=== PATIENT | female | born 1985 | race Hispanic/Latino ===

== ENCOUNTER 2024-10-25 17:42 | Emergency (ER) | payer OTHER, SELFPAY ==
[2024-10-25 17:49] VITALS: BP 128/89
[2024-10-25 18:15] LABS: % Basophils 0.3 % (0-2); % Eosinophils 0.5 % (0-6); % Immature Granulocytes 0.4 % (0-0.5); % Lymphocytes 7.2 % (20.5-51.1); % Monocytes 4.2 % (1.7-9.3); % Neutrophils 87.4 % (42.2-75.2); Absolute Eosinophils 0.1 10^3/uL (0-0.7); Absolute Lymphocytes 0.8 10^3/uL (1.2-3.4); Absolute Monocytes 0.5 10^3/uL (0.1-0.6); Absolute Neutrophils 9.3 10^3/uL (1.4-6.5); Hematocrit 42.2 % (37.0-47.0); Hemoglobin 14.6 g/dL (12.0-16.0); Mean Corp Hgb Conc. 34.6 g/dL (33.0-37.0); Mean Corpuscular Hgb 30.9 pg (27.0-31.0); Mean Corpuscular Volume 89.4 fL (81.0-99.0); Mean Platelet Volume 9.3 fL (7.4-10.4); Nucleated Red Blood Cells % 0 %; Platelet Count 321 10^3/uL (130-400); Red Blood Cell Count 4.72 10^6/uL (4.20-5.40); Red Cell Dist. Width 12.4 % (11.5-14.5); White Blood Cell Count 10.7 10^3/uL (4.8-10.8)
[2024-10-25 18:24] LABS: ALT (SGPT) 27 U/L (0-35); AST (SGOT) 27 U/L (14-36); Albumin 4.4 g/dl (3.5-5.0); Alkaline Phosphatase 62 U/L (38-126); Blood Urea Nitrogen 13 mg/dl (7-17); Calcium 9.3 mg/dl (8.4-10.2); Carbon Dioxide 21 mmol/L (22-30); Chloride 103 mmol/L (98-107); Glucose 132 mg/dl (70-99); Lipase 35 U/L (23-300); Potassium 3.9 mmol/L (3.5-5.1); Sodium 137 mmol/L (135-145); Total Bilirubin 0.7 mg/dl (0.2-1.3); Total Protein 7.9 g/dl (6.3-8.2); eGFR > 60.00
--- NOTE | 2024-10-25 21:09 | ED.GENMED ---
History of Present Illness
General
Chief Complaint: Abdominal Symptoms
Source: patient and family
Exam Limitations: none
Time Seen by Provider: 10/25/24 20:52
Nursing documentation reviewed up to this point in time: agreed with
History of Present Illness
History of Present Illness:
Patient is a 39-year-old female who presents to the ER complaining of nausea and vomiting for the past 4 days. She vomited more than 10 times today and has had watery diarrhea. Her daughter was sick recently but symptoms are lasted 1 day. She
does complain of epigastric burning and does have a history of gastritis but reports this is worse with vomiting. She denies any other type of abdominal pain. She denies any urinary frequency urgency or dysuria. Patient denies any fever chills.
Patient's last menstrual pair was last month she is due for her period. She reports is not sexually active
Past History
Past History
ED Past Medical History: None
ED Past Surgical History: None
Review of Systems
Review of Systems
Allergies reviewed?: Yes
All Other Systems: ROS reviewed and negative except as documented in HPI and ROS
Constitutional: Reports no symptoms; Denies fever, fatigue or chills
Respiratory: Reports no symptoms
Cardiac: Reports no symptoms
ABD/GI: Reports abdominal pain (epigastric discomfort /burning ), nausea, vomiting and diarrhea
: Reports no symptoms
Musculoskeletal: Reports no symptoms
Skin: Reports no symptoms
Neurological: Reports no symptoms
Psychiatric: Reports no symptoms
Phy Exam
General Physical Exam
General Presentation: no apparent distress
General age: appears stated age
General Skin: warm and dry
General Habitus: normal
General Mental: alert
General Hydration: dry mucous membranes
Gastrointestinal Exam
Gastrointestinal Exam: soft and other (+ epigastric tenderness )
Neurological Exam
Neurological Exam: alert and oriented x3
Musculoskeletal Exam
Musculoskeletal Exam: full ROM
Skin Exam
Skin Exam: normal color and warm/dry
Psychiatric Exam
Psychiatric Exam: normal mood/affect
Course
Orders/Labs/Results
Orders:
Orders
10/25/24 18:03
Complete Blood Count/With Diff Urgent
Comprehensive Metabolic Panel Urgent
Lipase Urgent
10/25/24 21:18
Ondansetron Injectable [Zofran] 4 mg IV NOW STA
10/25/24 21:19
0.9% Sodium Chloride 1000 ml [Nss] 1,000 ml IV BOLUS
Dicyclomine HCl [Bentyl] 20 mg IM NOW STA
10/25/24 23:04
Stool Culture Urgent
CLAUDIA Source: Feces/Stool
Specimen Description:
Date Specimen was Collected: 10/25/24
Time Specimen was Collected: 23:03
10/25/24 23:11
Vital Signs- Treatment ONCE
Frequency: Once
10/25/24 23:18
Ondansetron Injectable [Zofran] 4 mg IV NOW STA
10/25/24 23:19
Add On- LAB Urgent
Tests Added?: hcg qualitative
Abnormal Lab Results
10/25/24
18:03
Absolute Neuts (auto) 9.3 H 10^3/uL
(1.4-6.5)
Absolute Lymphs (auto) 0.8 L 10^3/uL
(1.2-3.4)
Neutrophils % 87.4 H %
(42.2-75.2)
Lymphocytes % 7.2 L %
(20.5-51.1)
Carbon Dioxide 21 L mmol/L
(22-30)
Glucose 132 H mg/dl
(70-99)
10/25/24 18:03
10/25/24 18:03
Vital Signs
Initial and Last Documented VS:
Initial Vital Signs
Temp Pulse Resp BP Pulse Ox
98.1 F 120 19 128/89 99
10/25/24 17:49 10/25/24 17:49 10/25/24 17:49 10/25/24 17:49 10/25/24 17:49
Last Documented Vital Signs
Temp Pulse Resp BP Pulse Ox
98.1 F 97 16 113/72 97
10/25/24 17:49 10/25/24 23:20 10/25/24 23:20 10/25/24 23:20 10/25/24 23:20
MDM/Problems Addressed
MDM/Problems Addressed:
Symptoms are consistent with viral gastroenteritis. Patient denies any fevers and is afebrile no UTI symptoms. Abdomen soft minimal epigastric tenderness that she had from vomiting however improved. no right upper or left upper quadrant
tenderness no lower abdominal tenderness. Nontoxic. Stool specimen sent to lab. no recent antibx.
[facility] with [facility] with Zofran clear liquids for the next 24 hours follow bland solid foods to return if any worsening of symptoms here patient nontoxic
ED Attending Note
-
Portions of this chart may have been created with voice recognition software.� Occasional wrong word or��sound alike� substitutions may have occurred due to the inherent limitations of voice recognition software.
Discharge Plan
Departure
Patient Disposition: Home (Routine Discharge)
Date of Disposition: 10/25/24
Time of Disposition: 23:19
Patient with high blood pressure during this ER visit?: Yes
Condition: Fair
Covid-19: Not Applicable
Discharge Problem:
Gastroenteritis
Instructions: Clear Liquid Diet, Nausea and Vomiting, Adult (DC), BLOOD PRESSURE
Prescriptions:
New
ondansetron 4 mg tablet,disintegrating
4 mg PO Q8H PRN (Reason: nausea and vomiting) Qty: 10 0RF
No Action
fluticasone propionate [Flovent Diskus] 50 MCG blister with device
1 puff inhalation DAILY
amoxicillin-pot clavulanate 1 TABLET tablet
1 tab PO Q12
nabumetone 500 MG tablet
500 mg PO DAILY
ondansetron 4 MG tablet,disintegrating
4 mg PO TIDPRN PRN (Reason: nausea) Qty: 9 0RF
hydrocodone-acetaminophen 1 TABLET tablet
1 tab PO Q4HPRN PRN (Reason: pain) Qty: 10 0RF
Referrals:
UNKNOWN - PT DOES,NOT KNOW [Family Provider] -
Stand Alone Forms: Return to Work
Activity Restrictions/Additional Instructions:
You may take Zofran as needed for nausea every 8 hours. This medication was sent to pharmacy.
Clear fluids for the next 24 hours follow bland solid foods. [facility] with [facility] in the next several days for reevaluation.
return if any worsening of symptoms.
Interventions
Interventions:
*Risk Screen - Suicide Last Done: 10/25/24 17:50
*Neglect/Abuse Screening Last Done: 10/25/24 17:50
PI-Kqfyoi-Majalqtpof Assessment Last Done: 10/25/24 21:41
Discharge Date and Time
Print Language: MALAYSIAN
[2024-10-25] MEDS: NSS 1000 IV (21:36)
[2024-10-25] MEDS: ZOFRAN 4 MG IV (21:36)
[2024-10-25] MEDS: BENTYL 20 MG IM (21:37)
[2024-10-25 23:20] VITALS: BP 113/72
[2024-10-26 00:29] LABS: HCG, Serum Qualitative Screen Negative
== END 2024-10-25 23:50 | disposition home or self-care (01) ==
LOC: EMR 17:42
PROVIDERS: Emergency Medicine; EMERGENCY PHYSICIAN Emergency Medicine
DX: K52.9 Noninfective gastroenteritis and colitis, unspecified (principal); Z87.19 Personal history of other diseases of the digestive system
CPT/HCPCS: 96374; 96372; 96361; 99284; 80053; 83690; 84703; 85025; 87045; 87046; 87427

== ENCOUNTER → 2025-01-02 13:23 | Outpatient (REF) | payer OTHER, SELFPAY ==
[2025-01-06 23:14] LABS: HPV, High Risk Not Detected; HPV, High Risk Source Cervical
== END ==
LOC: CLINIC 13:23
PROVIDERS: ATTENDING PHYSICIAN Nurse Practitioner Adult Health
DX: Z12.4 Encounter for screening for malignant neoplasm of cervix (principal)
CPT/HCPCS: 87624; G0123